=== PATIENT | male | born 1960 | race Caucasian/White ===

== ENCOUNTER → 2019-06-29 09:02 | Outpatient (BNVA) | payer OTHER, SELFPAY | PROVIDERS: Family Provider Family Medicine; PCP Family Medicine; Referring Provider Internal Medicine Rheumatology; Visit Provider Internal Medicine Rheumatology | DX: M05.79 Rheumatoid arthritis with rheumatoid factor of multiple sites without organ or systems involvement (principal); Z79.899 Other long term (current) drug therapy | CPT/HCPCS: 99213 ==

== ENCOUNTER → 2020-05-15 13:14 | Outpatient (BNVA) | payer OTHER, SELFPAY | PROVIDERS: Family Provider Family Medicine; PCP Family Medicine; Visit Provider Internal Medicine Rheumatology | DX: M05.79 Rheumatoid arthritis with rheumatoid factor of multiple sites without organ or systems involvement (principal); Z79.899 Other long term (current) drug therapy; Z85.828 Personal history of other malignant neoplasm of skin | CPT/HCPCS: 99213 ==

== ENCOUNTER → 2020-09-25 14:43 | Outpatient (BNVA) | payer OTHER, SELFPAY | PROVIDERS: Family Provider Family Medicine; PCP Family Medicine; Visit Provider Internal Medicine Rheumatology | DX: M05.79 Rheumatoid arthritis with rheumatoid factor of multiple sites without organ or systems involvement (principal); Z79.899 Other long term (current) drug therapy; Z85.828 Personal history of other malignant neoplasm of skin | CPT/HCPCS: 99214 ==

== ENCOUNTER 2021-09-16 21:35 | Observation (INO) | payer OTHER, SELFPAY ==
[2021-09-16 21:46] VITALS: BP 120/78; PULSE 71; RESP 20; TEMP 36.6; O2SAT 96; BMI 21.2
[2021-09-16 21:51] VITALS: BP 95/58; PULSE 68; RESP 18; TEMP 36.6; O2SAT 96
[2021-09-16 22:16] LABS: Basophils % 0.2 %; Eosinophils # 0.1 10^3/uL (0.0-0.8); Eosinophils % 0.6 %; Hematocrit 41.4 % (42.0-52.0); Lymphocytes # 1.5 10^3/uL (0.8-4.8); Lymphocytes % 12.1 %; Mean Corpuscular HGB Conc 33.8 g/dL (30.0-36.0); Mean Corpuscular Hemoglobin 31.3 pg (28.0-34.0); Mean Corpuscular Volume 92.6 fl (80-94); Mean Platelet Volume 9.5 fL (7.4-10.4); Monocytes % 7.6 %; Neutrophils # 9.91 10^3/uL (1.8-7.7); Neutrophils % 78.9 %; Nucleated Red Blood Cells % 0 %; Platelet Count 360 10^3/cmm (130-400); Red Blood Count 4.47 10^6/uL (4.1-5.3); Red Cell Distribution Width 12.9 % (12.1-15.1); White Blood Count 12.6 10^3/uL (4.0-10.0)
--- NOTE | 2021-09-16 22:17 | ED_ITS ---
HPI - Abdominal Pain General: Chief Complaint: Abdominal Pain Stated Complaint: LT side ABD knot Time Seen by Provider: 09/16/21 21:52 Source: patient Mode of arrival: ambulatory Limitations: no limitations History of Present Illness: 61-year-old male has a history of a left inguinal hernia he states that today has been working doing stuff outside and had enlarged greatly and started having pain. He states not been able to reduce the hernia today he rates the pain a 7 out of 10 no vomiting no diarrhea denies any worsening proving factors denies any fevers. Associated Symptoms: Denies chills, dysuria and fever(s) Review of Systems Const: Denies: fever(s), chills, body aches or change in appetite Eyes: Denies: blurry vision or eye discomfort ENMT: Denies: throat pain or dental pain Card: Denies: chest pain Resp: Denies: dyspnea GI: Reports: abdominal pain : Denies: dysuria Musc: Denies: neck pain or back pain Skin/Breast: Denies: rash Neuro: Denies: headache(s) Psych: Denies: depression Shane/Lymph: Denies: easy bruising All/Imm: Denies: urticaria PFSH ED PFSH: Medical History (Updated 09/17/21 @ 01:43 by Mariella Washburn MD) External ear ulcer High risk medication use Immunization counseling Rheumatoid arthritis with rheumatoid factor of right hand without organ or systems involvement Squamous cell cancer of external ear Surgical History Status post surgical removal of malignant neoplasm of skin Family History Other Hypertension Lung disease Rheumatoid arthritis Denies family history of Diabetes CAD (coronary artery disease) Systemic lupus erythematosus (SLE) in adult Stroke Social History Smoking and tobacco status: never smoked Alcohol intake: never Marital status: History of recent travel: No Physical Exam Const: COMMON NORMALS: no acute distress, patient oriented x3 and healthy appearing HENMT: COMMON NORMALS: normocephalic and atraumatic HEAD & SCALP: normocephalic and atraumatic Eye: COMMON NORMALS: Equal, round and reactive pupils present and EOMs intact bilaterally PUPIL: Yes Equal, round and reactive pupils present Neck/C-Spine: COMMON NORMALS: full ROM and supple Chest: COMMONS NORMALS: normal inspection of the chest and normal palpation of entire chest wall Resp: COMMON NORMALS: normal respiratory effort, No retractions, No use of accessory muscles and clear to auscultation bilaterally AUSCULTATION: clear to auscultation bilaterally Cardio: COMMON NORMALS: regular rate, regular rhythm and No murmurs present (Cardio) RATE: regular rate RHYTHM: regular rhythm GI: COMMON NORMALS: Normal to inspection, nondistended, normoactive bowel sounds present OTHER: Left inguinal hernia noted Extremity: COMMON NORMALS: normal to inspection and full ROM Neuro: COMMON NORMALS: patient oriented x3, moves all extremities and no focal motor deficits Psych: COMMON NORMALS: mental status grossly normal, Normal thought process present and cooperative THOUGHT PROCESS: Normal thought process present Skin: COMMON NORMALS: no rashes or lesions noted and no wounds GENERAL SKIN EXAM: no rashes or lesions noted Course Vital Signs: Vital signs: Vital Signs Temperature 97.9 F 09/16/21 21:51 Pulse Rate 68 09/16/21 21:51 Respiratory Rate 18 09/17/21 00:41 Blood Pressure 95/58 09/16/21 21:51 Pulse Oximetry 96 09/16/21 21:51 MDM - Abdominal Pain Medical Decision Making Patient presents here with left inguinal hernia that is incarcerated I tried multiple times to reduce it and was not unable to I spoke to Dr. Reed and will admit for the hernia. Lab Data : 09/16/21 22:05 09/16/21 22:05 Labs/Radiology: Radiology Impressions Abdomen/Pelvis CT 09/16/21 23:26 IMPRESSION: 1. Prominent fluid in the small bowel without dilation suggestive of an enteritis. 2. Left inguinal hernia containing colon and omentum without dilation, please correlate for reduction. 3. Small amount of nonspecific fluid in the left inguinal hernia sac. 4. Bibasilar atelectasis versus minimal infiltrate. Laboratory Results WBC 12.6 10^3/uL (4.0-10.0) H 09/16/21 22:05 RBC 4.47 10^6/uL (4.1-5.3) 09/16/21 22:05 Hgb 14.0 g/dL (11.7-16.6) 09/16/21 22:05 Hct 41.4 % (42.0-52.0) L 09/16/21 22:05 MCV 92.6 fl (80-94) 09/16/21 22:05 MCH 31.3 pg (28.0-34.0) 09/16/21 22:05 MCHC 33.8 g/dL (30.0-36.0) 09/16/21 22:05 RDW 12.9 % (12.1-15.1) 09/16/21 22:05 Plt Count 360 10^3/cmm (130-400) 09/16/21 22:05 MPV 9.5 fL (7.4-10.4) 09/16/21 22:05 Neut % (Auto) 78.9 % 09/16/21 22:05 Lymph % (Auto) 12.1 % 09/16/21 22:05 [place] % (Auto) 7.6 % 09/16/21 22:05 Eos % (Auto) 0.6 % 09/16/21 22:05 Baso % (Auto) 0.2 % 09/16/21 22:05 Neut # (Auto) 9.91 10^3/uL (1.8-7.7) H 09/16/21 22:05 Lymph # (Auto) 1.5 10^3/uL (0.8-4.8) 09/16/21 22:05 [place] # (Auto) 1.0 10^3/uL (0.2-0.9) H 09/16/21 22:05 Eos # (Auto) 0.1 10^3/uL (0.0-0.8) 09/16/21 22:05 Baso # (Auto) 0.0 10^3/uL (0.0-0.1) 09/16/21 22:05 Nucleated RBC % (auto) 0 % 09/16/21: Nucleated RBCs # 0.0 /100WBC 09/16/21 22:05 Sodium 135 mmol/L (136-145) L 09/16/21 22:05 Potassium 3.8 mmol/L (3.5-5.1) 09/16/21 22:05 Chloride 96 mmol/L (98-107) L 09/16/21 22:05 Carbon Dioxide 26 mmol/L (22-29) 09/16/21 22:05 Anion Gap 16.8 (5-19) 09/16/21 22:05 BUN 14 mg/dL (8-23) 09/16/21 22:05 Creatinine 1.1 mg/dL (0.7-1.2) 09/16/21 22:05 GFR Calculation 68.3 mL/min (90-130) L 09/16/21 22:05 Glucose 114 mg/dL (65-115) 09/16/21 22:05 Calculated Osmolality 281 mOsm/kg (285-295) L 09/16/21 22:05 Lactic Acid 0.9 mmol/L (0.5-2.2) 09/16/21 23:30 Lactate 0.9 mmol/L (0.5-2.2) 09/16/21 22:05 Calcium 10.2 mg/dL (8.5-10.5) 09/16/21 22:05 Total Bilirubin 0.6 mg/dL (0.15-1.2) 09/16/21 22:05 AST 16 U/L (0-40) 09/16/21 22:05 ALT 13 U/L (0-41) 09/16/21 22:05 Alkaline Phosphatase 93 IU/L (40-130) 09/16/21 22:05 Total Protein 7.2 g/dL (6.6-8.7) 09/16/21 22:05 Albumin 4.7 g/dL (3.5-5.2) 09/16/21 22:05 Globulin 2.5 g/dL (1.3-4.6) 09/16/21 22:05 Lipase 26 U/L (13-60) 09/16/21 22:05 Discharge Plan Discharge Patient Disposition: Admitted As Inpatient Clinical Impression: Incarcerated inguinal hernia Condition: Stable Coding Level of Care Code ED Esthetician/Spa Coordinator for Maia Fwd Exam Comprehensive
[2021-09-16 22:40] VITALS: RESP 17
[2021-09-16] MEDS: LORazepam 2 mg/mL INJ 1 mL 1 MG IVP (22:40)
[2021-09-16] MEDS: morphine 4 mg/mL SDV 1 mL IVP ×2 (22:40→23:10)
[2021-09-16] MEDS: sodium chloride 0.9% 1,000 ML 999 ML IV (22:47)
[2021-09-16 23:08] LABS: Alanine Aminotransferase 13 U/L (0-41); Albumin Level 4.7 g/dL (3.5-5.2); Alkaline Phosphatase 93 IU/L (40-130); Anion Gap 16.8 (5-19); Aspartate Amino Transferase 16 U/L (0-40); Blood Urea Nitrogen 14 mg/dL (8-23); Calcium 10.2 mg/dL (8.5-10.5); Carbon Dioxide 26 mmol/L (22-29); Chloride 96 mmol/L (98-107); Globulin 2.5 g/dL (1.3-4.6); Glomerular Filtration Rate 68.3 mL/min (90-130); Glucose 114 mg/dL (65-115); Lipase 26 U/L (13-60); Osmolality Calculated 281 mOsm/kg (285-295); Potassium 3.8 mmol/L (3.5-5.1); Sodium 135 mmol/L (136-145); Total Bilirubin 0.6 mg/dL (0.15-1.2); Total Protein 7.2 g/dL (6.6-8.7)
[2021-09-16 23:10] VITALS: RESP 17
--- NOTE | 2021-09-16 23:26 | CTR_ITS ---
PROCEDURE INFORMATION: Exam: CT Abdomen And Pelvis With Contrast Exam date and time: 09/16/2021 11:44 PM Age: 61 years old Clinical indication: Abdominal pain; Localized; Left lower quadrant (llq); Patient HX: Patient C/O worsening llq/groin pain and thins the knot where is inguinal hernia is feels bigger. TECHNIQUE: Imaging protocol: Computed tomography of the abdomen and pelvis with contrast. Radiation optimization: All CT scans at this facility use at least one of these dose optimization techniques: automated exposure control; mA and/or kV adjustment per patient size (includes targeted exams where dose is matched to clinical indication); or iterative reconstruction. Contrast material: OMNI 300; Contrast volume: 95 ml; Contrast route: INTRAVENOUS (IV); COMPARISON: CR Chest 2 views* [id number] 07/05/2018 11:04 AM RADIATION DOSE METRICS: Total DLP (mGy-cm): 1109.05 FINDINGS: Lungs: Bibasilar atelectasis versus minimal infiltrate. Liver: Normal. No mass. Gallbladder and bile ducts: Normal. No calcified stones. No ductal dilation. Pancreas: Normal. No ductal dilation. Spleen: Normal. No splenomegaly. Adrenal glands: Normal. No mass. Kidneys and ureters: Normal. No hydronephrosis. Stomach and bowel: Prominent fluid in the small bowel without dilation suggestive of an enteritis. Appendix: No evidence of appendicitis. Intraperitoneal space: Unremarkable. No free air. No significant fluid collection. Arteries: Unremarkable. No abdominal aortic aneurysm. Lymph nodes: Unremarkable. No enlarged lymph nodes. Urinary bladder: Unremarkable as visualized. Reproductive: Unremarkable as visualized. Bones/joints: Unremarkable. No acute fracture. Soft tissues: Left inguinal hernia containing colon and omentum without dilation, please correlate for reduction. Small amount of nonspecific fluid in the left inguinal hernia sac. CT/CT abdomen pelvis w con* [id number] IMPRESSION: 1. Prominent fluid in the small bowel without dilation suggestive of an enteritis. 2. Left inguinal hernia containing colon and omentum without dilation, please correlate for reduction. 3. Small amount of nonspecific fluid in the left inguinal hernia sac. 4. Bibasilar atelectasis versus minimal infiltrate.
[2021-09-16 23:31] LABS: Lactate (Lactic Acid level) 0.9 mmol/L (0.5-2.2)
[2021-09-16] MEDS: iohexol 300 mg/mL 100 mL Btl IV (23:42)
[2021-09-16 23:54] LABS: Lactic Sepsis W/Reflex 0.9 mmol/L (0.5-2.2)
[2021-09-17] VITALS (19 sets, daily range): BP systolic 94–122; BP diastolic 53–81; PULSE 51–72; RESP 12–18; TEMP 36.4–36.9; O2SAT 93–100; BMI 21.2
[2021-09-17] MEDS: LORazepam 2 mg/mL INJ 1 mL 0.5 MG IVP (00:41)
[2021-09-17] MEDS: HYDROmorphone 1 mg/mL INJ 1 mL 0.5 MG IVP (00:41)
[2021-09-17] MEDS: sodium chloride 0.9% 1,000 ML 100 ML IV (03:51)
--- NOTE | 2021-09-17 07:27 | ECG_ITS ---
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 Measurements Intervals [place] Rate: P: RI: QRS: QRSD: T: QT: QTc: Interpretive Statements SINUS BRADYCARDIA No previous ECG available for comparison Electronically Signed On 09-17-2021 22:16:50 CDT by Doroteo Perez M.D. [id number]
[2021-09-17 11:05] LABS: Add Urine Microscopic? NO; Charge for UA Resulting for Rev
[2021-09-17 11:15] LABS: Bilirubin Urine Neg (Negative); Blood Urine Neg (Negative); Glucose Urine UA Norm (Normal); Ketones Urine Negative (Negative); Leukocyte Esterase Urine Negative (Negative); Nitrate Urine Negative (Negative); Protein Urine Neg (Negative); Urine Appearance Clear (CLEAR); Urine Color Yellow (Yellow); Urobilinogen Urine Neg (Negative); pH Urine 6 (5-7)
--- NOTE | 2021-09-17 11:42 | PM.CONSULT ---
Providers/Reason For Consult Consulting Physician/Specialty*: General Surgery Dr. Reed Reason for Consult*: Left inguinal hernia Attending Physician: Ryan Reed MD Primary Care Provider: Rakesh Esteban MD History of Present Illness History of Present Illness Marino Chamorro is a 61 year old male who states that he has had a hernia in the left groin for over a year extending into scrotum but it never bothered him. Yesterday he presented to the ER with severe left groin pain and the hernia was partially reduced in the emergency room. Since then his abdominal pain has resolved and he denies any nausea or vomiting. Review of Systems General: Reports: 10 or more systems reviewed and unremarkable except in HPI and below Medications/Allergies Home Medications Medication Instructions Recorded Confirmed Last Taken Type aspirin 81 mg tablet,delayed 81 mg PO QAM 06/28/19 09/17/21 Unknown History release (Adult Aspirin Regimen) vitamin B complex (B-Complex) 1 tab PO QAM 06/28/19 09/17/21 Unknown History prednisone 10 mg tablet 10 mg PO DAILY PRN 7 Days #30 tab 08/20/21 09/17/21 Unknown Rx cholecalciferol (vitamin D3) 125 125 mcg PO QAM 09/17/21 09/17/21 Unknown History mcg (5,000 unit) tablet (Vitamin D3) lisinopril 20 mg tablet 20 mg PO QAM 09/17/21 09/17/21 Unknown History tofacitinib 11 mg tablet,extended 11 mg PO QAM 09/17/21 09/17/21 Unknown History release 24 hr (Xeljanz XR) triamterene 37.5 1 cap PO QAM 09/17/21 09/17/21 Unknown History mg-hydrochlorothiazide 25 mg capsule Allergies Allergy/AdvReac Type Severity Reaction Status Date / Time No Known Allergies Allergy Verified 09/17/21 09:38 Current Medications Generic Name Dose Route Start Last Admin Trade Name Freq PRN Reason Stop Dose Admin Sodium Chloride 1,000 mls @ 100 mls/hr 09/17/21 02:50 09/17/21 03:51 Sodium Chloride 0.9% IV 100 mls/hr .Q10H ZACH Administration PFSH Acute PFSH: Medical History Rheumatoid arthritis with rheumatoid factor of right hand without organ or systems involvement Squamous cell cancer of external ear Surgical History Status post surgical removal of malignant neoplasm of skin Family History Other Hypertension Lung disease Rheumatoid arthritis Denies family history of Diabetes CAD (coronary artery disease) Systemic lupus erythematosus (SLE) in adult Stroke Social History Smoking and tobacco status: never smoked Alcohol intake: never Marital status: History of recent travel: No Vitals/I&O/Wt Last Vital Signs Temp 97.6 F 09/17/21 07:46 Pulse 63 09/17/21 07:46 Resp 18 09/17/21 07:46 BP 102/53 09/17/21 07:46 Pulse Ox 96 09/17/21 07:46 09/16/21 09/17/21 09/17/21 22:59 06:59 14:59 Intake Total 1000 / 1000 Output Total 650 / 650 Balance 1000 / 1000 -650 / -650 Weight last 48 hrs Weight 170 lb Weight 170 lb Physical Exam Narrative: HEENT: Normocephalic Eye: Sclera /conjunctiva normal Respiratory and chest: Bilateral clear breath sounds on auscultation Cardiovascular: Normal S1 and S2 heart sounds Abdomen: Soft to palpation, nontender incarcerated left inguinal hernia extending to the scrotum Neurological: Oriented to place person and time Skin: Intact, no lesions appreciated on gross exam Data : 09/16/21 22:05 09/16/21 22:05 A&P Assessment and plan (1) Left inguinal hernia: 61-year-old male who presents with symptomatic left inguinal hernia which is been chronically incarcerated for over a year but became painful yesterday and had to be partially reduced. Plan for open repair of left inguinal hernia with mesh today Procedure, risks, benefits and alternatives have been discussed with the patient who wishes to proceed with surgery. Status: Acute Consult Attestations Medical Necessity Statement: As per attending physician Coding Level of Care Code Acute Affiliate Manager for Chg Fwd Diagnoses Left inguinal hernia K40.90
--- NOTE | 2021-09-17 12:11 | ANES.PREANE2 ---
Pre-Anesthetic Assessment Height/Weight: Height 1.91 m Weight 77.111 kg Temp Pulse Resp BP Pulse Ox 97.6 F 63 18 102/53 96 09/17/21 07:46 09/17/21 07:46 09/17/21 07:46 09/17/21 07:46 09/17/21 07:46 Preop Diagnosis: Left inguinal hernia Operation Date: 09/17/21 12:55 Proposed Procedures p Inguinal Hernia Repair(Not Applicable) - Ryan Reed MD Familial anesthetic complications: None Was Beta Prashant taken within 24 hours: N/A Was Clonidine taken within 24 hours: N/A Last intake: 09/16/21 Social No alcohol and No tobacco Exam alert, oriented x 3, clear to auscultation bilaterally and regular rate & rhythm Airway Submandibular: within normal limits Cervical ROM: within normal limits Mallampati: Class II Dentition: false Pulmonary None reported CV/HEM Hypertension None reported Hepatic None reported GI Incarcerated hernia Metabolic None reported Musc/skel Rheumatoid Arthritis Prednisone 10 mg day Neuropsych None reported Anesthetic Plan ASA status: 3 (61 year male with incarcerated hernia ) Anesthesia: Anesthesia Evaluation and General Other: We discussed risk and benefits of general anesthesia including PONV, sore throat (sometimes severe), corneal abrasion, positioning and peripheral nerve injuries, life threatening allergic reaction, post operative ICU admission requiring prolonged intubation, stroke, heart attack, , and rare incidences of recall. Patient consents to proceed with general anesthesia. Risk of > 500 ml blood loss (7ml/kg in children): No Medications/Allergies Home Medications Medication Instructions Recorded Confirmed Last Taken Type aspirin 81 mg tablet,delayed 81 mg PO QAM 06/28/19 09/17/21 09/16/21 History release (Adult Aspirin Regimen) vitamin B complex (B-Complex) 1 tab PO QAM 06/28/19 09/17/21 Unknown History prednisone 10 mg tablet 10 mg PO DAILY PRN 7 Days #30 tab 08/20/21 09/17/21 Unknown Rx cholecalciferol (vitamin D3) 125 125 mcg PO QAM 09/17/21 09/17/21 Unknown History mcg (5,000 unit) tablet (Vitamin D3) lisinopril 20 mg tablet 20 mg PO QAM 09/17/21 09/17/21 Unknown History tofacitinib 11 mg tablet,extended 11 mg PO QAM 09/17/21 09/17/21 Unknown History release 24 hr (Xeljanz XR) triamterene 37.5 1 cap PO QAM 09/17/21 09/17/21 Unknown History mg-hydrochlorothiazide 25 mg capsule Allergies Allergy/AdvReac Type Severity Reaction Status Date / Time No Known Allergies Allergy Verified 09/17/21 09:38 Current Medications Generic Name Dose Route Start Last Admin Trade Name Freq PRN Reason Stop Dose Admin Sodium Chloride 1,000 mls @ 100 mls/hr 09/17/21 02:50 09/17/21 03:51 Sodium Chloride 0.9% IV 100 mls/hr .Q10H ZACH Administration PFSH Anesthesia Medical History Rheumatoid arthritis with rheumatoid factor of right hand without organ or systems involvement Squamous cell cancer of external ear Surgical History Status post surgical removal of malignant neoplasm of skin Family History Other Hypertension Lung disease Rheumatoid arthritis Denies family history of Diabetes CAD (coronary artery disease) Systemic lupus erythematosus (SLE) in adult Stroke Social History Smoking and tobacco status: never smoked Alcohol intake: never Marital status: History of recent travel: No Data Anesthesia : 09/16/21 22:05 09/16/21 22:05 Short CBC 09/16/21 Range/Units 22:05 WBC 12.6 H (4.0-10.0) 10^3/uL Hgb 14.0 (11.7-16.6) g/dL Hct 41.4 L (42.0-52.0) % MCV 92.6 (80-94) fl Plt Count 360 (130-400) 10^3/cmm Neut % (Auto) 78.9 % Neut # (Auto) 9.91 H (1.8-7.7) 10^3/uL BMP 09/16/21 22:05 Sodium 135 L Potassium 3.8 Chloride 96 L Carbon Dioxide 26 BUN 14 Creatinine 1.1 Glucose 114 Calcium 10.2 Liver Function 09/16/21 Range/Units 22:05 Total Bilirubin 0.6 (0.15-1.2) mg/dL AST 16 (0-40) U/L ALT 13 (0-41) U/L Alkaline Phosphatase 93 (40-130) IU/L Albumin 4.7 (3.5-5.2) g/dL Urine 09/16/21 Range/Units 10:39 Urine Color Yellow (Yellow) Urine Appearance Clear (CLEAR) Urine pH 6 (5-7) Ur Specific [place] 1.010 (1.005-1.030) Urine Protein Neg (Negative) Urine Glucose (UA) Norm (Normal) Urine Ketones Negative (Negative) Urine Nitrate Negative (Negative) Urine Bilirubin Neg (Negative) Ur Leukocyte Esterase Negative (Negative) Cardiac Studies: No Data to Display
--- NOTE | 2021-09-17 12:16 | PC.CHAP ---
Pastoral Care Encounter/Spiritual Assessment Type of Contact [] Declined alumni relations coordinator visit [] Patient/Family/Request visit [] Outpatient visit [] Follow-up visit [] Physician referral [] Code/Alert [x] Routine visit [] Staff referral [] Actively dying [] Patient sleeping [] Family support [] [] Out of room [] Palliative care [] [] Receiving care in room [] Pre-surgical visit [] Trauma [] Long length of stay [] ICU visit [] Other: Relational/Emotional Strength [x] Patient feels connected with others/family/visitors/staff [] Distress [] Loneliness/isolation [] Abandonment Spirituality of Patient [x] Person of Reyna [] Attends Confucianist of their Reyna [x] Believes in Prayer [] Reads Bible or Druze materials [] There are Spiritual issues to be addressed Warp Tier Interventions [x] Prayer [x] Active listening [x] Non-anxious presence [x] Spiritual/emotional support [] Crisis/trauma care [] Spiritual counseling [] Bereavement support [] Provided bereavement packet [] Provided Bible/devotional materials [] Provided toy/stuffed animal, coloring book to patient or family member [] Provided Communion [] Anointing/[place] [] Salvation [x] Completed spiritual assessment [] Other: Impact on Illness or Injury [] Angry [] Fearful [] Anxious [] Often cries [] Exhaustion [] Unable to work [] Unable to attend cheondoism [] Unable to walk/stand [] Unable to read [] Unable to drive [] Unable to eat/drink [] Unable to sleep [] Unable to be with family [] Patient intubated [] Other: Summary Time spent with patient 10 min
--- NOTE | 2021-09-17 13:48 | PC.NURSE ---
Patient left unit for surgery at [id number]
[2021-09-17] MEDS: sodium chloride 0.9% 1,000 ML 30 ML IV (13:50)
--- NOTE | 2021-09-17 15:11 | P.OP_ITS ---
Operative Report Date of procedure: September 17, 2021 Pre-op diagnosis: Incarcerated left inguinal hernia containing sigmoid colon and omentum Post-op diagnosis: Incarcerated left inguinal hernia containing sigmoid colon and omentum. No evidence of bowel ischemia. Procedure done: Open repair of incarcerated left indirect inguinal hernia containing sigmoid colon and omentum with plug and mesh Pathology: none sent Surgeon: Ryan Reed Anesthesia: General Condition: stable Disposition: PACU Procedure: The patient was taken to the operating room, intubated under general anesthesia after antibiotic administered and the abdomen was prepped and draped in sterile manner. A 5 cm incision was made over the left inguinal canal using 15 blade, the subcutaneous tissue, Agnes's fascia was divided using electrocautery until the external oblique aponeurosis was identified. Using a 15 blade, a small opening was made in the external oblique aponeurosis along the length of the fibers, this was grasped with hemostats and opened using Metzenbaum scissors medially to the external ring and laterally beyond the internal ring. The contents of inguinal canal were dissected free from the wall and a [place] drain was placed around it. There was no direct hernia noted. The hernia sac along with the testicle was dissected free from the scrotal attachments and exteriorized and the cremasteric muscles were divided until the sac could be dissected free from the spermatic cord . The hernia sac was opened, the omentum and sigmoid colon which appeared viable was reduced into the peritoneal cavity. The sac was closed using 2 oh pursestring Vicryl suture. Small plug was placed in the internal ring and sutured using 2-0 Prolene [id number] suture. A Proloop mesh was introduced and using 2-0 Prolene suture the medial edge of the mesh was sutured to the fascia overlying the pubic tubercle, and the suture was run to approximate the inferior edge of the mesh to the shelving edge of inguinal ligament to a point beyond the internal ring. Interrupted 2-0 Prolene suture was used to approximate the superior edge of the mesh to the internal oblique muscles and the 2 limbs of the mesh was sutured lateral to the internal ring and approximated to the internal oblique muscle. The wound was copiously irrigated with saline, good hemostasis noted and the external oblique aponeurosis was closed with running 2-0 Vicryl suture, Agnes's fascia approximated using running 3-0 Vicryl suture, and skin was closed using running subcuticular 4-0 Monocryl suture and Dermabond. 20 mL of 0.25% Marcaine was infiltrated around the incision. The patient was extubated and transferred to recovery room in stable condition.
--- NOTE | 2021-09-17 15:12 | PM.DCS ---
Discharge Providers Date of Admission: 09/17/21 01:21 Date of Discharge: September 17, 2021 Attending Provider at Admission: Dell Smalls MD Attending Provider at Discharge: Ryan Reed MD Primary Care Provider: Rakesh Esteban MD Diagnoses at Discharge Discharge Diagnosis (1) Left inguinal hernia: Status: Resolved Reason for Visit Reason for Visit: Left groin pain Brief History: Marino Chamorro is a 61 year old male who states that he has had a hernia in the left groin for over a year extending into scrotum but it never bothered him.? Yesterday he presented to the ER with severe left groin pain and the hernia was partially reduced in the emergency room.? Since then his abdominal pain has resolved and he denies any nausea or vomiting. Hospital Course Hospital Course Patient was admitted to the hospital for observation and underwent open repair of left inguinal hernia with plug and mesh. At time of discharge he was tolerating liquid diet, ambulating, vital signs are stable and his pain is controlled with oral pain medications. Discharge Data Studies Completed and Pending Completed Studies During Hospitalization Category Date Time Status CT abdomen pelvis w con* [id number] Urgent Cat Scan 09/16/21 23:26 Completed Radiology Impressions Abdomen/Pelvis CT 09/16/21 23:26 IMPRESSION: 1. Prominent fluid in the small bowel without dilation suggestive of an enteritis. 2. Left inguinal hernia containing colon and omentum without dilation, please correlate for reduction. 3. Small amount of nonspecific fluid in the left inguinal hernia sac. 4. Bibasilar atelectasis versus minimal infiltrate. Laboratory Results WBC 12.6 10^3/uL (4.0-10.0) H 09/16/21 22:05 RBC 4.47 10^6/uL (4.1-5.3) 09/16/21 22:05 Hgb 14.0 g/dL (11.7-16.6) 09/16/21 22:05 Hct 41.4 % (42.0-52.0) L 09/16/21 22:05 MCV 92.6 fl (80-94) 09/16/21 22:05 MCH 31.3 pg (28.0-34.0) 09/16/21 22:05 MCHC 33.8 g/dL (30.0-36.0) 09/16/21 22:05 RDW 12.9 % (12.1-15.1) 09/16/21 22:05 Plt Count 360 10^3/cmm (130-400) 09/16/21 22:05 MPV 9.5 fL (7.4-10.4) 09/16/21 22:05 Neut % (Auto) 78.9 % 09/16/21 22:05 Lymph % (Auto) 12.1 % 09/16/21 22:05 [place] % (Auto) 7.6 % 09/16/21 22:05 Eos % (Auto) 0.6 % 09/16/21 22:05 Baso % (Auto) 0.2 % 09/16/21 22:05 Neut # (Auto) 9.91 10^3/uL (1.8-7.7) H 09/16/21 22:05 Lymph # (Auto) 1.5 10^3/uL (0.8-4.8) 09/16/21 22:05 [place]in # (Auto) 1.0 10^3/uL (0.2-0.9) H 09/16/21 22:05 Eos # (Auto) 0.1 10^3/uL (0.0-0.8) 09/16/21 22:05 Baso # (Auto) 0.0 10^3/uL (0.0-0.1) 09/16/21 22:05 Nucleated RBC % (auto) 0 % 09/16/21 22:05 Nucleated RBCs # 0.0 /100WBC 09/16/21 22:05 Sodium 135 mmol/L (136-145) L 09/16/21 22:05 Potassium 3.8 mmol/L (3.5-5.1) 09/16/21 22:05 Chloride 96 mmol/L (98-107) L 09/16/21 22:05 Carbon Dioxide 26 mmol/L (22-29) 09/16/21 22:05 Anion Gap 16.8 (5-19) 09/16/21 22:05 BUN 14 mg/dL (8-23) 09/16/21 22:05 Creatinine 1.1 mg/dL (0.7-1.2) 09/16/21 22:05 GFR Calculation 68.3 mL/min (90-130) L 09/16/21 22:05 Glucose 114 mg/dL (65-115) 09/16/21 22:05 Calculated Osmolality 281 mOsm/kg (285-295) L 09/16/21 22:05 Lactic Acid 0.9 mmol/L (0.5-2.2) 09/16/21 23:30 Lactate 0.9 mmol/L (0.5-2.2) 09/16/21 22:05 Calcium 10.2 mg/dL (8.5-10.5) 09/16/21 22:05 Total Bilirubin 0.6 mg/dL (0.15-1.2) 09/16/21 22:05 AST 16 U/L (0-40) 09/16/21 22:05 ALT 13 U/L (0-41) 09/16/21 22:05 Alkaline Phosphatase 93 IU/L (40-130) 09/16/21 22:05 Total Protein 7.2 g/dL (6.6-8.7) 09/16/21 22:05 Albumin 4.7 g/dL (3.5-5.2) 09/16/21 22:05 Globulin 2.5 g/dL (1.3-4.6) 09/16/21 22:05 Lipase 26 U/L (13-60) 09/16/21 22:05 Urine Color Yellow (Yellow) 09/16/21 10:39 Urine Appearance Clear (CLEAR) 09/16/21 10:39 Urine pH 6 (5-7) 09/16/21 10:39 Ur Specific [place] 1.010 (1.005-1.030) 09/16/21 10:39 Urine Protein Neg (Negative) 09/16/21 10:39 Urine Glucose (UA) Norm (Normal) 09/16/21 10:39 Urine Ketones Negative (Negative) 09/16/21 10:39 Urine Blood Neg (Negative) 09/16/21 10:39 Urine Nitrate Negative (Negative) 09/16/21 10:39 Urine Bilirubin Neg (Negative) 09/16/21 10:39 Urine Urobilinogen Neg mg/dL (Negative) 09/16/21 10:39 Ur Leukocyte Esterase Negative (Negative) 09/16/21 10:39 Vitals Last Vital Signs Temp 98.5 F 09/17/21 13:41 Pulse 60 09/17/21 13:41 Resp 18 09/17/21 13:41 BP 114/74 09/17/21 13:41 Pulse Ox 96 09/17/21 13:41 Discharge Plan Discharge Patient Disposition: Home Condition: Stable Prescriptions: New hydrocodone-acetaminophen 5-325 mg tablet 1 tab PO Q6H PRN (Reason: pain) Qty: 20 0RF ondansetron HCl 4 mg tablet 4 mg PO Q8H 5 Days Qty: 15 0RF Colace 100 mg capsule 100 mg PO BID Qty: 30 0RF Continued vitamin B complex [B-Complex] Tablet 1 tab PO QAM 0RF aspirin [Adult Aspirin Regimen] 81 mg tablet,delayed release (DR/EC) 81 mg PO QAM 0RF prednisone 10 mg tablet 10 mg PO DAILY PRN (Reason: inflammatory arthritis ) 7 Days Qty: 30 1RF Rx Instructions: as needed for RA flare up lisinopril 20 mg tablet 20 mg PO QAM 0RF triamterene-hydrochlorothiazid 37.5-25 mg capsule 1 cap PO QAM 0RF cholecalciferol (vitamin D3) [Vitamin D3] 125 mcg (5,000 unit) Tablet 125 mcg PO QAM 0RF Xeljanz XR 11 mg tablet extended release 24 hr 11 mg PO QAM 0RF Discharge Orders: Discharge Order (Routine); Ordered 09/17/21 Ordered By: Ryan Reed Referrals: Ryan Reed MD [Physician] - 09/30/21 9:30 am Rakesh Esteban MD [Primary Care Provider] - 09/26/21 9:15 am Patient Instructions: Hydrocodone/Acetaminophen (By mouth), Laxative, Stool Softeners (By mouth), Ondansetron (By mouth), Inguinal Hernia, Laparoscopic Herniorrhaphy (IP), Opioid Safety Activity Restrictions/Additional Instructions: Diet Advance to normal diet as tolerated, increase fluid intake as much as possible. Activity Avoid strenuous activity for 2 weeks but continue with daily activities including walking as tolerated. Do not lift more than 10 pounds for 2 weeks Return to work/school You can return to work/ school whenever you feel ready as long as you don?t have to lift more than 10 pounds at work. If you have paperwork that needs to be completed for time off from work, please contact my office Driving You can resume driving once you stop using narcotic pain medications, and transition to non-opioid pain medications like Tylenol, Motrin, Aleve, etc. Medications Pain Take opioid pain medications as prescribed and transition to non-opioid pain medications like Tylenol, Motrin, Aleve etc. over the next few days. The goal of the pain medications is to make the pain bearable and not to be pain free since you recently had surgery. Resume all home medications after surgery as per the medication reconciliation list Nausea Nausea is common after surgery, take nausea medications as needed and stay on a liquid bland diet until nausea resolves. Constipation The combination of surgery, anesthesia and pain medications can result in constipation. Take stool softeners as prescribed. If you do not have a bowel movement in 3 days, please take an [id number]-cow-wjgfjke laxative like MiraLAX to address the constipation. Shower It is ok to shower but avoid getting the wound wet for 48 hours after surgery. Do not soak in bathtub, swimming pool or hot tub for 2 weeks. Wound care If glue has been used on your incisions after surgery, the glue on the incision will peel slowly over the next two weeks. The stitches used are dissolvable and will not need to be removed. Do not apply antibiotics or other medications on the incision Problems with the wound: you can develop some redness around the incision from bruising after surgery. If there is increasing pain, redness, tenderness around the incision with or without drainage, please contact my office to rule out an infection. Sometimes the skin at the incisions can separate, resulting in reopening of the wound. Cover the wound with antibiotic cream and sterile dressings and contact my office. Contact physician Call the office at [phone] during office hours or go the Emergency Room ?Fever to 100.4 or greater ?Shaking chills ?Pain that increases over time ?Redness, warmth, or pus draining from incision sites ?Persistent nausea or inability to take in liquids Discharge Attestations Time Spent in Discharge Care*: less than 30 min Quality Metrics Clinical Quality Measures [ No reported AMI, CVA or VTE this stay] Coding Level of Care Code Acute Chg FW DC note Diagnoses Left inguinal hernia K40.90
[2021-09-17] MEDS: lidocaine 2% INJ 20 mL INJECTION (15:29)
[2021-09-17] MEDS: fentaNYL 50 mcg/mL INJ 2mL IVP (17:04)
--- NOTE | 2021-09-17 18:00 | PC.NURSE ---
Assessed Patient after surgery. Patient has clear lungs. Small amount of blood on incision which is dermabonded. Patient is alert and oriented.
--- NOTE | 2021-09-17 18:10 | ANE.PACU2 ---
Inpatient post-anesthesia follow up: Airway intact: Yes Vital signs: Temperature 97.6 F Pulse Rate 56 Respiratory Rate 16 Blood Pressure 112/62 Pulse Oximetry 93 Oxygen Delivery Me thod Room Air Oxygen Flow Rate 6 Fraction of Inspir ed Oxygen Hydration adequate: Yes Nausea and vomiting: No Pain level: 4 Mental status: Baseline
--- NOTE | 2021-09-17 18:43 | PC.NURSE ---
Patient drank two cokes, walked to double doors and back and voided 325 ml
--- NOTE | 2021-09-17 19:01 | PC.NURSE ---
wrong patient signed off on.
--- NOTE | 2021-09-17 19:06 | PC.NURSE ---
Discussed patient discharge and follow up appointments with patient and spouse. Patient verbalized understanding.
== END 2021-09-17 18:55 | disposition home or self-care (01) ==
LOC: ER 09-17 01:43 → MEDSURG 09-17 02:12
PROVIDERS: Emergency Medicine; Admitting Provider Internal Medicine; Emergency Provider Emergency Medicine; PCP Family Medicine; Visit Provider Surgery
PROC: (CPT 49507; principal; 2021-09-17 12:55)
DX: K40.90 Unilateral inguinal hernia, without obstruction or gangrene, not specified as recurrent (principal); M06.9 Rheumatoid arthritis, unspecified; Z79.52 Long term (current) use of systemic steroids; Z79.82 Long term (current) use of aspirin
CPT/HCPCS: 49507; 74177; 80053; 81003; 83605; 83690; 85025; 93005; 96365; 96367; 96375; 96376; 99285; C1781; G0378; J0690; J1100; J1170; J2060; J2270; J2405; J2704; J2710; J3010; J3490; J7030; Q9967

== ENCOUNTER 2024-09-21 14:20 | Oncology outpatient (recurring) (ONCR) | payer OTHER, SELFPAY ==
[2024-09-21 14:43] LABS: Basophils % 0.5 %; Eosinophils # 0.4 10^3/uL (0.0-0.8); Eosinophils % 4.4 %; Hematocrit 39.7 % (37-53); Lymphocytes # 1.4 10^3/uL (0.8-4.8); Lymphocytes % 17.6 %; Mean Corpuscular HGB Conc 32.5 g/dL (30-55); Mean Corpuscular Volume 95.4 fl (82-101); Mean Platelet Volume 9.6 fL (7.4-10.4); Monocytes % 12.9 %; Neutrophils # 5.06 10^3/uL (1.8-7.7); Nucleated Red Blood Cells % 0 %; Platelet Count 263 10^3/cmm (157-399); Red Blood Count 4.16 10^6/uL (3.85-5.65); Red Cell Distribution Width 13.2 % (12.1-15.1); White Blood Count 7.91 10^3/uL (3.29-11.43)
[2024-09-21 14:51] LABS: Erythrocyte Sedimentation Rate 10 mm/hr (0-10)
[2024-09-21 14:57] LABS: Alanine Aminotransferase 28 U/L (0-41); Albumin Level 3.8 g/dL (3.5-5.2); Alkaline Phosphatase 93 U/L (40-130); Aspartate Amino Transferase 23 U/L (0-40); C Reactive Protein 5.3 mg/L (0.0-4.9); Creatinine Clr Calc Pharmacy 87.5383; Globulin 2.6 g/dL (1.3-4.6); Glomerular Filtration Rate 75.5 mL/min (90-130); Total Bilirubin 0.3 mg/dL (0.15-1.2); Total Protein 6.4 g/dL (6.6-8.7)
[2024-09-21 16:20] LABS: Lactate Dehydrogenase 285 U/L (135-225)
== END 2024-09-27 23:59 | disposition home or self-care (01) ==
PROVIDERS: Internal Medicine Rheumatology; PCP Family Medicine; Visit Provider Internal Medicine
DX: C44.222 Squamous cell carcinoma of skin of right ear and external auricular canal (principal); M05.79 Rheumatoid arthritis with rheumatoid factor of multiple sites without organ or systems involvement; Z79.899 Other long term (current) drug therapy
CPT/HCPCS: 36415; 80076; 82565; 83615; 85025; 85651; 86140

== ENCOUNTER 2024-10-02 16:16 | Outpatient (CLI) | payer OTHER, SELFPAY ==
--- NOTE | 2024-10-02 16:24 | CT_ITS ---
WS: [id number] CT NECK TECHNIQUE: Contrast-enhanced CT of the neck with coronal and sagittal reformatted images. CLINICAL INFORMATION: NEOPLASM OF UNCERTAIN BEHAVIOR OF SKIN COMPARISON: None. DLP: 164.[address] scans at [facility] use at least one of these dose optimization techniques: automated exposure control; mA and/or kV adjustment per patient size (includes targeted exams where dose is matched to clinical indication); or iterative reconstruction. FINDINGS: Enhancing skin cancer overlying the LEFT sternocleidomastoid with skin thickening and underlying induration. This slightly abuts the sternocleidomastoid. Normal parotid glands. Normal submandibular glands. Normal thyroid gland. Mastoid air cells are well aerated. Normal posterior nasopharynx. Normal parapharyngeal fat. No evidence of supraglottic or glottic mass. Normal subglottic airway. Slight medial deviation of the RIGHT vocal cord. Recommend correlation for vocal cord dysfunction. Prominent lymph nodes at the thoracic inlet to be discussed in the chest CT. Fibrosis and pleural plaques in the upper lobes. Two Small subcentimeter nodules in the RIGHT upper lobe. CT/CT neck w con* [id number] IMPRESSION: 1. Enhancing lobulated skin cancer overlying the LEFT sternocleidomastoid with skin thickening and underlying induration. This slightly abuts the underlying sternocleidomastoid in some areas. 2. Otherwise no evidence of metastatic disease in the neck. 3. Slight medial deviation of the RIGHT true vocal cord. Recommend correlation for RIGHT vocal cord dysfunction. 4. A few small nodules in the lung apices will be discussed on the chest CT. P rominent lymph nodes at the thoracic inlet.
--- NOTE | 2024-10-02 16:24 | CT_ITS ---
WS: [id number] CT HEAD TECHNIQUE: Noncontrast and contrast-enhanced CT of the head. CLINICAL INFORMATION: NEOPLASM OF UNCERTAIN BEHAVIOR OF SKIN COMPARISON: None. DLP: 1140.[address] scans at [facility] use at least one of these dose optimization techniques: automated exposure control; mA and/or kV adjustment per patient size (includes targeted exams where dose is matched to clinical indication); or iterative reconstruction. FINDINGS: No evidence of intracranial hemorrhage or mass effect. Ventricular system and basal cisterns are patent. No abnormal intracranial enhancement. No hydrocephalus. Mild small vessel changes. Mild parenchymal volume loss. Paranasal sinuses and mastoid air cells are well aerated. No other acute findings Partially visualized enhancing lesions overlying the RIGHT face and posterior to the right ear presumably due to known skin cancer. Small amount of underlying induration. No bony involvement. CT/CT head wo/w con [id number] IMPRESSION: No acute intracranial findings
--- NOTE | 2024-10-02 16:24 | CT_ITS ---
WS: [id number] CT CHEST TECHNIQUE: Contrast enhanced CT of the chest with coronal and sagittal reformatted images. CLINICAL INFORMATION: NEOPLASM OF UNCERTAIN BEHAVIOR OF SKIN COMPARISON: None. DLP: 362.[address] scans at [facility] use at least one of these dose optimization techniques: automated exposure control; mA and/or kV adjustment per patient size (includes targeted exams where dose is matched to clinical indication); or iterative reconstruction. FINDINGS: Normal caliber thoracic aorta. Normal thyroid gland. Prominent lymph nodes at the thoracic inlet and anterior mediastinum are nonspecific the largest measuring 9 mm. No axillary lymphadenopathy. Prominent AP window lymph nodes. Calcified RIGHT hilar and infrahilar lymph nodes. Large esophageal hernia. Fatty liver. Adrenal glands are normal. Bibasilar atelectasis. Calcified granuloma RIGHT upper lobe. Fibrosis and pleural plaques in the lung apices. 2 tiny noncalcified nodules in the RIGHT upper lobe. CT/CT chest w con* [id number] IMPRESSION: 1. Slightly prominent thoracic inlet and anterior mediastinal lymph nodes desc ribed above the largest measuring approximately 9 mm. These are nonspecific but may be reactive. Metastatic disease not excluded but less likely. Consider 3-[facility] follow-up to assess for change or PET/CT if clinical concern for metastati c disease. 2. Two Tiny nodules in the RIGHT upper lobe. 3. No other suspicious pulmonary parenchymal abnormalities. 4. Large esophageal hiatal hernia. 5. Fatty liver.
[2024-10-02] MEDS: iohexol 350 mg/mL 500 mL Btl (per mL) IV ×2 (17:04)
== END 2024-10-02 16:17 | disposition home or self-care (01) ==
LOC: RAD 16:17
PROVIDERS: PCP Family Medicine; Visit Provider Dermatology
DX: Z85.828 Personal history of other malignant neoplasm of skin (principal); R93.89 Abnormal findings on diagnostic imaging of other specified body structures; R23.4 Changes in skin texture; R91.8 Other nonspecific abnormal finding of lung field; R59.0 Localized enlarged lymph nodes; J84.10 Pulmonary fibrosis, unspecified; J92.9 Pleural plaque without asbestos
CPT/HCPCS: 70470; 70491; 71260

== ENCOUNTER 2024-12-21 13:00 | Oncology outpatient (recurring) (ONCR) | payer OTHER, SELFPAY ==
[2024-12-06 14:39] LABS: Hematocrit 38.8 % (37-53); Hemoglobin 12.70 g/dL (11.27-16.99); Mean Corpuscular HGB Conc 32.7 g/dL (30-55); Mean Corpuscular Hemoglobin 30.0 pg (27-33); Mean Corpuscular Volume 91.7 fl (82-101); Nucleated Red Blood Cells % 0 %; Platelet Count 326 10^3/cmm (157-399); Red Blood Count 4.23 10^6/uL (3.85-5.65); White Blood Count 13.31 10^3/uL (3.29-11.43)
[2024-12-06 14:55] LABS: Alanine Aminotransferase 20 U/L (0-41); Albumin Level 3.8 g/dL (3.5-5.2); Alkaline Phosphatase 101 U/L (40-130); Anion Gap 18.2 (5-19); Aspartate Amino Transferase 16 U/L (0-40); Blood Urea Nitrogen 12 mg/dL (8-23); Calcium 9.4 mg/dL (8.5-10.5); Carbon Dioxide 23 mmol/L (22-29); Chloride 101 mmol/L (98-107); Creatinine Clr Calc Pharmacy 85.9252; Globulin 2.9 g/dL (1.3-4.6); Glucose 101 mg/dL (65-115); Osmolality Calculated 286 mOsm/kg (285-295); Potassium 4.2 mmol/L (3.5-5.1); Sodium 138 mmol/L (136-145); Total Protein 6.7 g/dL (6.6-8.7)
[2024-12-21 13:26] LABS: Hematocrit 42.7 % (37-53); Hemoglobin 13.80 g/dL (11.27-16.99); Mean Corpuscular HGB Conc 32.3 g/dL (30-55); Mean Corpuscular Hemoglobin 30.1 pg (27-33); Mean Corpuscular Volume 93.2 fl (82-101); Nucleated Red Blood Cells % 0 %; Platelet Count 249 10^3/cmm (157-399); Red Blood Count 4.58 10^6/uL (3.85-5.65); White Blood Count 8.74 10^3/uL (3.29-11.43)
[2024-12-21 14:05] LABS: Alanine Aminotransferase 27 U/L (0-41); Albumin Level 4.0 g/dL (3.5-5.2); Alkaline Phosphatase 101 U/L (40-130); Anion Gap 21.1 (5-19); Aspartate Amino Transferase 21 U/L (0-40); Blood Urea Nitrogen 10 mg/dL (8-23); Calcium 9.5 mg/dL (8.5-10.5); Carbon Dioxide 21 mmol/L (22-29); Chloride 99 mmol/L (98-107); Creatinine Clr Calc Pharmacy 95.0413; Globulin 2.7 g/dL (1.3-4.6); Glucose 171 mg/dL (65-115); Osmolality Calculated 287 mOsm/kg (285-295); Potassium 4.1 mmol/L (3.5-5.1); Sodium 137 mmol/L (136-145); Thyroid Stimulating Hormone 0.62 uIU/mL (0.27-4.20); Total Protein 6.7 g/dL (6.6-8.7)
[2024-12-21] MEDS: cemiplimab-rwlc 350 MG in sodium chloride 0.9% 250 ML 500 MG IV (15:46)
[2024-12-21 16:17] VITALS: BP 138/92; PULSE 71; O2SAT 95
== END 2024-12-21 23:59 | disposition home or self-care (01) ==
PROVIDERS: Internal Medicine Rheumatology; Nurse Practitioner; PCP Family Medicine; Visit Provider Internal Medicine
DX: Z51.12 Encounter for antineoplastic immunotherapy; C44.92 Squamous cell carcinoma of skin, unspecified; Z79.899 Other long term (current) drug therapy; Z53.9 Procedure and treatment not carried out, unspecified reason
CPT/HCPCS: 36415; 80053; 82248; 83615; 84443; 85025; 85651; 86140; 96413; A4222; J7050; J9119; Q0162

== ENCOUNTER 2024-12-28 13:19 | Oncology outpatient (recurring) (ONCR) | payer OTHER, SELFPAY ==
[2024-12-28 13:41] LABS: Hematocrit 39.3 % (37-53); Hemoglobin 12.70 g/dL (11.27-16.99); Mean Corpuscular HGB Conc 32.3 g/dL (30-55); Mean Corpuscular Hemoglobin 30.0 pg (27-33); Mean Corpuscular Volume 92.9 fl (82-101); Nucleated Red Blood Cells % 0 %; Platelet Count 216 10^3/cmm (157-399); Red Blood Count 4.23 10^6/uL (3.85-5.65); White Blood Count 8.91 10^3/uL (3.29-11.43)
[2024-12-28 14:10] LABS: Alanine Aminotransferase 25 U/L (0-41); Albumin Level 3.7 g/dL (3.5-5.2); Alkaline Phosphatase 92 U/L (40-130); Anion Gap 16.4 (5-19); Aspartate Amino Transferase 21 U/L (0-40); Blood Urea Nitrogen 13 mg/dL (8-23); Calcium 9.1 mg/dL (8.5-10.5); Carbon Dioxide 25 mmol/L (22-29); Chloride 101 mmol/L (98-107); Creatinine Clr Calc Pharmacy 86.5074; Globulin 2.6 g/dL (1.3-4.6); Glucose 113 mg/dL (65-115); Osmolality Calculated 287 mOsm/kg (285-295); Potassium 4.4 mmol/L (3.5-5.1); Sodium 138 mmol/L (136-145); Thyroid Stimulating Hormone 0.69 uIU/mL (0.27-4.20); Total Protein 6.3 g/dL (6.6-8.7)
== END 2024-12-28 23:59 | disposition home or self-care (01) ==
PROVIDERS: Nurse Practitioner; PCP Family Medicine; Visit Provider Internal Medicine
DX: C44.92 Squamous cell carcinoma of skin, unspecified (principal)
CPT/HCPCS: 36415; 80053; 84443; 85025

== ENCOUNTER 2025-01-11 14:00 | Oncology outpatient (recurring) (ONCR) | payer OTHER, SELFPAY ==
--- NOTE | 2025-01-05 12:30 | PETR_ITS ---
PROCEDURE INFORMATION: Exam: PET/CT Whole Body Exam date and time: 01/05/2025 1:18 PM Age: 64 years old Clinical indication: Condition or disease; Primary cancer: Squamous cell carcinoma; Initial oncological staging assessment; Prior surgery; Surgery date: 6+ months; Surgery type: Skin cancer removed from the left lateral upper neck. LABS AND CLINICAL REPORTS: Glucose: 139 mg/dl Treatment strategy for malignancy (PET staging): Initial Staging (PI) TECHNIQUE: Imaging protocol: Following at least four-hour fasting and following the injection of radiopharmaceutical, low dose CT images were obtained. Then, PET images were obtained. Attenuation corrected images were constructed using the CT scan. Fused images of PET and CT were reviewed. The standardized uptake values (SUV) reported below are maximum values within a region of interest, expressed in gm/ml. Exam includes the whole body. SUV normalization method: Body weight Radiopharmaceutical: 12.24 mCi F-18 FDG (Fluorodeoxyglucose), IV. Time of imaging post radiopharmaceutical administration: 54 minutes Injection site: left ac COMPARISON: CT neck w con* [id number] 10/02/2024 4:45 PM FINDINGS: Brain: No abnormal uptake. Pharynx: No abnormal uptake. Larynx: No abnormal uptake. Lungs, pleura and trachea: No abnormal uptake. Calcified granulomas in the right middle lobe and the right lower lobe. No pleural effusion. Heart: No abnormal uptake. There is no cardiomegaly. No coronary artery calcification is visualized. There is no pericardial effusion. Mediastinal space: No abnormal uptake. Liver: No abnormal uptake. Gallbladder and biliary ducts: Unremarkable. Pancreas: Normal distribution of radiotracer. Spleen: No abnormal uptake. Adrenal glands: No abnormal uptake. No nodules. Kidneys and ureters: Normal physiologic uptake. No hydronephrosis. Stomach and bowel: No abnormal uptake. Intraperitoneal and retroperitoneal spaces: No abnormal uptake. No ascites. Bladder: Normal physiologic uptake. Reproductive: No abnormal uptake. Small bilateral hydrocele. Mildly enlarged prostate. Vasculature: Mildly increased uptake of 3.2 SUV in the right greater saphenous vein in the right mid thigh on series 301 image 391 with very slight focal enlargement of the vein for clinical correlation with thrombophlebitis. Long segment of the vein below this region shows borderline uptake of 2 SUV. Lymph nodes: Increased uptake in normal size bilateral supraclavicular lymph nodes (6.8 SUV on the left side, 5.2 SUV SUV on the right side) and mediastinal and bilateral hilar lymph nodes (15.4 SUV in the subcarinal node, 9.6 SUV in the paratracheal lymph node, 5.9 SUV in the prevascular lymph node, 11.2 SUV in the left hilum, 7.4 SUV in the right hilum). Mildly increased uptake of 4.3 SUV within normal size perihepatic/periportal lymph nodes. There is sequela of exposure to granulomatous disease with calcified granulomas in normal size right subcarinal and right hilar lymph nodes. No FDG avid lymph nodes in the pelvis, axillas and groins. Skeleton: Increased synovial uptake in the right knee and the left wrist is compatible with benign inflammatory finding. There is mild synovial effusion in the right knee. Soft tissues: Linear uptake of 4.2 SUV in the skin of the left lateral upper neck on axial image 71 of series 301 corresponds to the location of resected mass documented on prior CT neck on 10/02/2024 representing either postsurgical inflammation or local recurrence for correlation with physical exam. About 3 x 0.7 cm area of focal skin thickening in the left dorsal hand measures 10.4 SUV. There are 2 about 1 cm foci of increased uptake measuring 4 SUV and 3.5 SUV in the skin of the lateral and posterior left forearm (series 301, images 282 and 278). Non masslike intramuscular uptake anteriorly in bilateral gluteal muscles and in bilateral paraspinal muscles is benign Notes: Mediastinal blood pool maximal uptake is 2.5 SUV. Liver maximal uptake is 3.4 SUV. PET/PET WB melanoma INITIAL [id number] IMPRESSION: 1. Status post resection of the tumor in the left lateral upper neck. Linear increased cutaneous uptake within the resection bed of this mass may represent postsurgical inflammation or local recurrence for correlation with physical exam. 2. Intensely FDG avid areas of skin thickening in the left dorsal hand and in the left mid forearm for correlation with physical exam. 3. Intense uptake in normal size bilateral supraclavicular, mediastinal and bilateral hilar lymph nodes may be malignant or benign reactive in nature given history of exposure to granulomatous disease. There are no additional findings concerning for distant metastatic disease 4. Mildly increased uptake within the inferior segment of the right greater saphenous vein is suggestive of thrombophlebitis for clinical correlation. 5. Benign inflammatory uptake in the right knee and the left wrist.
[2025-01-11 14:12] LABS: Hematocrit 38.7 % (37-53); Hemoglobin 12.70 g/dL (11.27-16.99); Mean Corpuscular HGB Conc 32.8 g/dL (30-55); Mean Corpuscular Hemoglobin 30.0 pg (27-33); Mean Corpuscular Volume 91.3 fl (82-101); Nucleated Red Blood Cells % 0 %; Platelet Count 300 10^3/cmm (157-399); Red Blood Count 4.24 10^6/uL (3.85-5.65); White Blood Count 7.99 10^3/uL (3.29-11.43)
[2025-01-11 14:39] LABS: Alanine Aminotransferase 19 U/L (0-41); Albumin Level 3.9 g/dL (3.5-5.2); Alkaline Phosphatase 101 U/L (40-130); Anion Gap 17.2 (5-19); Aspartate Amino Transferase 19 U/L (0-40); Blood Urea Nitrogen 14 mg/dL (8-23); Calcium 9.2 mg/dL (8.5-10.5); Carbon Dioxide 23 mmol/L (22-29); Chloride 97 mmol/L (98-107); Creatinine Clr Calc Pharmacy 86.1194; Globulin 2.6 g/dL (1.3-4.6); Glucose 112 mg/dL (65-115); Osmolality Calculated 279 mOsm/kg (285-295); Potassium 3.2 mmol/L (3.5-5.1); Sodium 134 mmol/L (136-145); Thyroid Stimulating Hormone 1.36 uIU/mL (0.27-4.20); Total Protein 6.5 g/dL (6.6-8.7)
[2025-01-11] MEDS: cemiplimab-rwlc 350 MG in sodium chloride 0.9% 250 ML 500 MG IV (16:06)
[2025-01-11 16:49] VITALS: BP 124/79; PULSE 78; RESP 17; TEMP 36.6; O2SAT 98
== END 2025-01-11 23:59 | disposition home or self-care (01) ==
PROVIDERS: PCP Family Medicine; Visit Provider Internal Medicine
DX: Z51.12 Encounter for antineoplastic immunotherapy; C44.92 Squamous cell carcinoma of skin, unspecified; Z79.899 Other long term (current) drug therapy; Z53.9 Procedure and treatment not carried out, unspecified reason
CPT/HCPCS: 78816; 80053; 84443; 85025; 96413; A4222; A9552; J7050; J9119; Q0162

== ENCOUNTER 2025-02-02 08:16 | Oncology outpatient (recurring) (ONCR) | payer OTHER, SELFPAY ==
[2025-02-02 08:51] LABS: Hematocrit 39.1 % (37-53); Hemoglobin 12.90 g/dL (11.27-16.99); Mean Corpuscular HGB Conc 33.0 g/dL (30-55); Mean Corpuscular Hemoglobin 30.3 pg (27-33); Mean Corpuscular Volume 91.8 fl (82-101); Nucleated Red Blood Cells % 0 %; Platelet Count 277 10^3/cmm (157-399); Red Blood Count 4.26 10^6/uL (3.85-5.65); White Blood Count 7.87 10^3/uL (3.29-11.43)
[2025-02-02 09:09] LABS: Alanine Aminotransferase 18 U/L (0-41); Albumin Level 3.9 g/dL (3.5-5.2); Alkaline Phosphatase 93 U/L (40-130); Aspartate Amino Transferase 19 U/L (0-40); Globulin 2.7 g/dL (1.3-4.6); Total Protein 6.6 g/dL (6.6-8.7)
[2025-02-02 09:15] LABS: Alanine Aminotransferase 20 U/L (0-41); Albumin Level 3.9 g/dL (3.5-5.2); Alkaline Phosphatase 94 U/L (40-130); Anion Gap 15.7 (5-19); Aspartate Amino Transferase 18 U/L (0-40); Blood Urea Nitrogen 15 mg/dL (8-23); Calcium 9.3 mg/dL (8.5-10.5); Carbon Dioxide 26 mmol/L (22-29); Chloride 103 mmol/L (98-107); Creatinine Clr Calc Pharmacy 96.1193; Globulin 2.7 g/dL (1.3-4.6); Glucose 81 mg/dL (65-115); Osmolality Calculated 292 mOsm/kg (285-295); Potassium 3.7 mmol/L (3.5-5.1); Sodium 141 mmol/L (136-145); Thyroid Stimulating Hormone 2.62 uIU/mL (0.27-4.20); Total Protein 6.6 g/dL (6.6-8.7)
[2025-02-02] MEDS: cemiplimab-rwlc 350 MG in sodium chloride 0.9% 250 ML 500 MG IV (10:16)
[2025-02-02 10:59] VITALS: BP 147/92; PULSE 65; TEMP 36.6; O2SAT 97
== END 2025-02-02 23:59 | disposition home or self-care (01) ==
PROVIDERS: Internal Medicine Rheumatology; PCP Family Medicine; Visit Provider Nurse Practitioner Family
DX: Z51.12 Encounter for antineoplastic immunotherapy (principal); C44.92 Squamous cell carcinoma of skin, unspecified; Z79.899 Other long term (current) drug therapy
CPT/HCPCS: 80053; 80076; 84443; 85025; 85651; 86140; 96413; A4222; J7050; J9119; Q0162

== ENCOUNTER 2025-02-23 08:10 | Oncology outpatient (recurring) (ONCR) | payer OTHER, SELFPAY ==
[2025-02-23 08:33] LABS: Hematocrit 39.5 % (37-53); Hemoglobin 13.00 g/dL (11.27-16.99); Mean Corpuscular HGB Conc 32.9 g/dL (30-55); Mean Corpuscular Hemoglobin 30.4 pg (27-33); Mean Corpuscular Volume 92.5 fl (82-101); Nucleated Red Blood Cells % 0 %; Platelet Count 258 10^3/cmm (157-399); Red Blood Count 4.27 10^6/uL (3.85-5.65); White Blood Count 7.53 10^3/uL (3.29-11.43)
[2025-02-23 08:58] LABS: Alanine Aminotransferase 22 U/L (0-41); Albumin Level 3.9 g/dL (3.5-5.2); Alkaline Phosphatase 100 U/L (40-130); Anion Gap 16.6 (5-19); Aspartate Amino Transferase 22 U/L (0-40); Blood Urea Nitrogen 12 mg/dL (8-23); Calcium 9.1 mg/dL (8.5-10.5); Carbon Dioxide 25 mmol/L (22-29); Chloride 100 mmol/L (98-107); Creatinine Clr Calc Pharmacy 96.3351; Globulin 2.8 g/dL (1.3-4.6); Glucose 122 mg/dL (65-115); Osmolality Calculated 287 mOsm/kg (285-295); Potassium 3.6 mmol/L (3.5-5.1); Sodium 138 mmol/L (136-145); Total Protein 6.7 g/dL (6.6-8.7)
[2025-02-23 09:00] LABS: Thyroid Stimulating Hormone 2.57 uIU/mL (0.27-4.20)
[2025-02-23] MEDS: cemiplimab-rwlc 350 MG in sodium chloride 0.9% 250 ML 500 MG IV (09:51)
[2025-02-23 10:31] VITALS: BP 132/82; PULSE 75; TEMP 36.4; O2SAT 93
== END 2025-02-23 23:59 | disposition home or self-care (01) ==
PROVIDERS: PCP Family Medicine; Visit Provider Nurse Practitioner Family
DX: Z51.12 Encounter for antineoplastic immunotherapy (principal); C44.92 Squamous cell carcinoma of skin, unspecified; Z79.899 Other long term (current) drug therapy
CPT/HCPCS: 80053; 83615; 84443; 85025; 96413; A4222; J7050; J9119; Q0162

== ENCOUNTER 2025-03-19 08:08 | Oncology outpatient (recurring) (ONCR) | payer OTHER, SELFPAY ==
[2025-03-16 08:17] LABS: Hematocrit 40.8 % (37-53); Hemoglobin 13.10 g/dL (11.27-16.99); Mean Corpuscular HGB Conc 32.1 g/dL (30-55); Mean Corpuscular Hemoglobin 30.1 pg (27-33); Mean Corpuscular Volume 93.8 fl (82-101); Nucleated Red Blood Cells % 0 %; Platelet Count 258 10^3/cmm (157-399); Red Blood Count 4.35 10^6/uL (3.85-5.65); White Blood Count 6.93 10^3/uL (3.29-11.43)
[2025-03-16 08:41] LABS: Alanine Aminotransferase 23 U/L (0-41); Albumin Level 3.9 g/dL (3.5-5.2); Alkaline Phosphatase 85 U/L (40-130); Anion Gap 15.1 (5-19); Aspartate Amino Transferase 17 U/L (0-40); Blood Urea Nitrogen 14 mg/dL (8-23); Calcium 9.0 mg/dL (8.5-10.5); Carbon Dioxide 25 mmol/L (22-29); Chloride 99 mmol/L (98-107); Creatinine Clr Calc Pharmacy 86.7619; Globulin 2.8 g/dL (1.3-4.6); Glucose 102 mg/dL (65-115); Osmolality Calculated 283 mOsm/kg (285-295); Potassium 3.1 mmol/L (3.5-5.1); Sodium 136 mmol/L (136-145); Total Protein 6.7 g/dL (6.6-8.7)
[2025-03-16 08:53] LABS: Alanine Aminotransferase 23 U/L (0-41); Albumin Level 3.9 g/dL (3.5-5.2); Alkaline Phosphatase 85 U/L (40-130); Aspartate Amino Transferase 18 U/L (0-40); Globulin 2.7 g/dL (1.3-4.6); Thyroid Stimulating Hormone 2.15 uIU/mL (0.27-4.20); Total Protein 6.6 g/dL (6.6-8.7)
[2025-03-16] MEDS: cemiplimab-rwlc 350 MG in sodium chloride 0.9% 250 ML 500 MG IV (10:09)
[2025-03-16 10:41] VITALS: BP 130/87; PULSE 80; TEMP 36.2; O2SAT 98
== END 2025-03-19 15:27 | disposition home or self-care (01) ==
PROVIDERS: Internal Medicine Rheumatology; PCP Family Medicine; Visit Provider Nurse Practitioner Family
DX: Z53.9 Procedure and treatment not carried out, unspecified reason (principal)
CPT/HCPCS: 80053; 80076; 84443; 85025; 85651; 86140; 86480; 96413; A4222; J7050; J9119; Q0162

== ENCOUNTER 2025-04-05 13:58 | Oncology outpatient (recurring) (ONCR) | payer OTHER, SELFPAY ==
[2025-04-05 14:32] LABS: Hematocrit 37.8 % (37-53); Hemoglobin 12.30 g/dL (11.27-16.99); Mean Corpuscular HGB Conc 32.5 g/dL (30-55); Mean Corpuscular Hemoglobin 30.9 pg (27-33); Mean Corpuscular Volume 95.0 fl (82-101); Nucleated Red Blood Cells % 0 %; Platelet Count 259 10^3/cmm (157-399); Red Blood Count 3.98 10^6/uL (3.85-5.65); White Blood Count 8.27 10^3/uL (3.29-11.43)
[2025-04-05 14:53] LABS: Alanine Aminotransferase 21 U/L (0-41); Albumin Level 4.0 g/dL (3.5-5.2); Alkaline Phosphatase 80 U/L (40-130); Anion Gap 18.3 (5-19); Aspartate Amino Transferase 19 U/L (0-40); Blood Urea Nitrogen 18 mg/dL (8-23); Calcium 8.9 mg/dL (8.5-10.5); Carbon Dioxide 21 mmol/L (22-29); Chloride 102 mmol/L (98-107); Globulin 2.4 g/dL (1.3-4.6); Glucose 130 mg/dL (65-115); Osmolality Calculated 288 mOsm/kg (285-295); Potassium 4.3 mmol/L (3.5-5.1); Sodium 137 mmol/L (136-145); Thyroid Stimulating Hormone 0.97 uIU/mL (0.27-4.20); Total Protein 6.4 g/dL (6.6-8.7)
[2025-04-05 16:03] VITALS: BP 134/88; PULSE 87; RESP 16; TEMP 36.7; O2SAT 95
[2025-04-05] MEDS: cemiplimab-rwlc 350 MG in sodium chloride 0.9% 250 ML 500 MG IV (16:13)
[2025-04-05 16:50] VITALS: BP 142/90; PULSE 87; RESP 17; TEMP 36.8; O2SAT 96
== END 2025-04-05 23:59 | disposition home or self-care (01) ==
PROVIDERS: PCP Family Medicine; Visit Provider Nurse Practitioner Family
DX: Z51.12 Encounter for antineoplastic immunotherapy (principal); C44.42 Squamous cell carcinoma of skin of scalp and neck; C44.629 Squamous cell carcinoma of skin of left upper limb, including shoulder; M06.9 Rheumatoid arthritis, unspecified; Z79.899 Other long term (current) drug therapy
CPT/HCPCS: 36415; 80053; 84443; 85025; 96413; A4222; J7050; J9119; Q0162

== ENCOUNTER 2025-05-04 08:37 | Oncology outpatient (recurring) (ONCR) | payer OTHER, SELFPAY ==
[2025-05-04 09:25] LABS: Hematocrit 37.5 % (37-53); Hemoglobin 11.90 g/dL (11.27-16.99); Mean Corpuscular HGB Conc 31.7 g/dL (30-55); Mean Corpuscular Hemoglobin 31.1 pg (27-33); Mean Corpuscular Volume 97.9 fl (82-101); Nucleated Red Blood Cells % 0 %; Platelet Count 244 10^3/cmm (157-399); Red Blood Count 3.83 10^6/uL (3.85-5.65); White Blood Count 8.00 10^3/uL (3.29-11.43)
[2025-05-04 09:54] LABS: Alanine Aminotransferase 30 U/L (0-41); Albumin Level 3.9 g/dL (3.5-5.2); Alkaline Phosphatase 86 U/L (40-130); Anion Gap 14.7 (5-19); Aspartate Amino Transferase 27 U/L (0-40); Blood Urea Nitrogen 16 mg/dL (8-23); Calcium 8.9 mg/dL (8.5-10.5); Carbon Dioxide 26 mmol/L (22-29); Chloride 98 mmol/L (98-107); Globulin 2.7 g/dL (1.3-4.6); Glucose 106 mg/dL (65-115); Osmolality Calculated 282 mOsm/kg (285-295); Potassium 3.7 mmol/L (3.5-5.1); Sodium 135 mmol/L (136-145); Thyroid Stimulating Hormone 1.74 uIU/mL (0.27-4.20); Total Protein 6.6 g/dL (6.6-8.7)
[2025-05-04] MEDS: cemiplimab-rwlc 350 MG in sodium chloride 0.9% 250 ML 500 MG IV (11:05)
[2025-05-04 11:45] VITALS: BP 135/88; PULSE 80; RESP 17; TEMP 36.8; O2SAT 97
== END 2025-05-07 15:33 | disposition home or self-care (01) ==
PROVIDERS: Internal Medicine Rheumatology; Nurse Practitioner; PCP Family Medicine; Visit Provider Nurse Practitioner Family
DX: Z51.12 Encounter for antineoplastic immunotherapy (principal); C44.92 Squamous cell carcinoma of skin, unspecified; Z79.899 Other long term (current) drug therapy
CPT/HCPCS: 80053; 82248; 84443; 85025; 85651; 86140; 96365; 96375; A4222; J7050; J9119; Q0162